=== PATIENT | female | born 1990 | race Caucasian/White ===

== ENCOUNTER 2017-04-05 08:51 | Inpatient (IN) ==
[2017-04-05] MEDS ORDERED: MEPERIDINE 50 MG/1 ML VIAL IV PRN (08:56)
[2017-04-05] MEDS ORDERED: ONDANSETRON 4 MG/2 ML VIAL IV PRN (08:56)
[2017-04-05] MEDS ORDERED: CITRIC ACID/SODIUM CITRATE 30 ML UDCUP PO ONE (08:59)
[2017-04-05] MEDS ORDERED: ePHEDrine 50 MG/ML AMP IV PRN (08:59)
[2017-04-05] MEDS ORDERED: PROMETHAZINE 25 MG/1 ML VIAL IM ONE (08:59)
[2017-04-05] MEDS ORDERED: hydrOXYzine HCL 25 MG/1 ML VIAL IM PRN (08:59)
[2017-04-05] MEDS ORDERED: ONDANSETRON 4 MG/2 ML VIAL IV ONE (08:59)
[2017-04-05] MEDS ORDERED: LACTATED RINGERS 1,000 ML IV ONE (08:59)
[2017-04-05] MEDS ORDERED: FAMOTIDINE 20 MG/2 ML VIAL IV ONE (08:59)
[2017-04-05] MEDS ORDERED: fentaNYL 2 MCG/ROPIV 0.2% EPID 150 ML EPIDURAL SCH (08:59)
[2017-04-05] MEDS ORDERED: diphenhydrAMINE 50 MG/1 ML VIAL IV PRN ×2 (08:59)
[2017-04-05] MEDS ORDERED: LACTATED RINGERS 1,000 ML IV SCH (09:00)
[2017-04-05 09:13] LABS: Basophils % 0.2 % (0.0-0.8); Eosinophils # 0.1 10*3/uL (0.0-0.87); Eosinophils % 0.9 % (0.00-10.9); Hematocrit 29.1 VOL% (35.7-47.0); Hemoglobin 9.4 GM/DL (12.0-16.0); Immature Granulocytes % 0.6 %; Immature Granulocytes Absolute 0.06 #; Lymphocytes % 21.5 % (21.3-54.2); Mean Corpuscular HGB Conc 32.3 GM/DL (32-36); Mean Corpuscular Hemoglobin 26 PG (27-34); Mean Corpuscular Volume 79.9 FL (87-102); Mean Platelet Volume 11.9 FL (9.6-12.0); Monocytes # 0.7 10*3/uL (0.11-0.8); Monocytes % 7.3 % (1.7-12.7); Neutrophils # 6.5 10*3/uL (1.4-7.4); Neutrophils % 69.5 % (38.7-73.9); Platelet Count 174 T/CUMM (130-400); Red Blood Count 3.64 MC/CUMM (3.8-5.5); White Blood Count 9.3 T/CUMM (4-12)
[2017-04-05] MEDS ORDERED: LIDOCAINE 1% 50 ML VIAL ONE (09:16)
[2017-04-05] MEDS ORDERED: OXYTOCIN/LR 20 UNIT/1,000 ML BAG IV ONE ×3 (09:16→15:06)
[2017-04-05] MEDS ORDERED: CLINDAMYCIN INJ 900 MG in PREMIX 1 EACH IV SCH (09:30)
[2017-04-05 09:36] LABS: Band Neutrophils 4 % (0-10); Hypochromasia 1+; Lymphocytes 18 % (20-55); Microcytosis Slight; Platelet Estimate Normal; Segmented Neutrophils 77 % (50-85); Total Cells Counted 100
[2017-04-05 09:41] LABS: Albumin 2.6 G/DL (3.4-5.0); Bilirubin,Total 0.7 MG/DL (0.2-1.0); Calcium 9.1 MG/DL (8.5-10.1); Potassium 3.7 MMOL/L (3.5-5.1); Total Protein 6.9 G/DL (6.4-8.3)
--- NOTE | 2017-04-05 09:45 | OB/GYN History & Physical ---
History of Present Illness Chief complaint: Labor History of present illness: Ms. Cruz is a 27 year old female at 38 3/7 weeks who presented ~0900 in active labor. on admission and very uncomfortable. No issues with the . Pt has a diagnosis of Bipolar disorder and Schizophrenia. Home Medications Medication Instructions Recorded Confirmed Type NIFEdipine CAP [Procardia] 10 mg PO Q6HR 03/02/17 04/05/17 History Acetamin/Codeine 300-30 Tab 1 tablet PO Q4H 03/27/17 04/05/17 History [Tylenol/Codeine #3] Vit No.124/Iron/Folic 1 tablet PO DAILY 03/27/17 04/05/17 History [ Vitamin Tablet] Allergies Allergy/AdvReac Type Severity Reaction Status Date / Time Amoxicillin Allergy Unknown/Unable Verified 01/16/17 17:40 to obtain Cefaclor [From Ceclor] Allergy Unknown/Unable Verified 01/16/17 17:40 to obtain doxycycline Allergy Unknown/Unable Verified 01/16/17 17:40 to obtain levofloxacin Allergy ITCHING Verified 01/16/17 17:40 morphine Allergy ITCHING Verified 01/16/17 17:40 povidone-iodine Allergy Unknown/Unable Verified 01/16/17 17:40 [From Betadine] to obtain soap [From Betadine] Allergy Unknown/Unable Verified 01/16/17 17:40 to obtain Medical,Surgical,& Family Hx - Medical History Psychological: History of: Anxiety Disorders Respiratory: History of: Asthma Reproductive: No history of: Ectopic , Complication - Surgical History HEENT Surgeries: Surgical HX of: Tonsilectomy & Adenoidectomy Abdominal Surgeries: Surgical HX of: Hernia Repair Reproductive Surgeries: Surgical HX of;: Dilation and Curettage (x 3) Patient denies;: Section - Social History Smoking Status: Never smoker Frequency of Alcohol Use: None Type of Drug Use: None 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 Regular contractions.) Assessment and Plan (1) 38 weeks gestation of Status: Acute Assessment and plan: Active labor Anticipate Current Visit: Yes Results - Labs CBC & BMP: 04/05/17 09:00 04/05/17 09:00
[2017-04-05] MEDS ORDERED: METHYLERGONOVINE 0.2 MG/1 ML AMP ONE (10:32)
[2017-04-05 12:35] LABS: Apearance,Urine Slightly Hazy (Clear); Bilirubin,Urine Negative (Negative); Blood, Urine Moderate mg/dL (Negative); Glucose,Urine (UA) Negative (Negative); Ketones,Urine 80 mg/dL (Negative); Mucus,Urine Many /LPF (Occasional); Nitrite,Urine Negative (Negative); Protein,Urine 30 MG/DL; RBC,Urine 75 /HPF (0-4); Squamous Epithelial Cell,Urine Occasional /HPF (0-10); Urine Color Yellow (Yellow); Urine Specific Gravity 1.023 (1.001-1.035); WBC,Urine 4 /HPF (0-6)
[2017-04-05 12:56] LABS: Barbiturates Screen,Urine Negative (Negative); Benzodiazepines Screen,Urine Negative (Negative); Cannabinoid Screen,Urine Negative (Negative); Opiate Screen,Urine Positive (Negative); Phencyclidine Screen,Urine Negative (Negative)
--- NOTE | 2017-04-05 14:14 | Event Note ---
HPI: Ms. Cruz is a 27-year-old female who presented to the labor department in active labor. The risk and benefits were thoroughly discussed with this patient and significant other, plan of care was discussed with Dr. Irwin and all parties were in agreement plan. Stage I: The patient was admitted she received IV fluids and IV Pitocin per protocol. She experienced spontaneous rupture membranes with clear fluid noted. She received an epidural for pain control. She progressed in labor with a CAT 1 to CAT 2 tracing. The CAT 2 tracing was correct with oxygenation and position change. Otherwise the patient had an uneventful course of labor. Stage II: The patient was completely dilated at 1345. The patient was then instructed to push. She pushed approximately 3 times after which time the 's head was delivered. The mouth nose suctioned on the perineum. The remainder the was delivered at 1351 a viable female was noted. Apgars were 8 at 1 minute and 9 at 5 minutes. weight was 8 pounds and 6 ounces. A cord pH was obtained and sent to the lab. The was stabilized and placed on the mom's abdomen for skin to skin bonding. Stage III: Spontaneous delivery of a Spencer placenta with three-vessel cord noted. The placenta was further examined appeared to be grossly intact. The vagina cervix was inspected with no tears or lacerations noted. Estimated blood loss was approximately 150 cc. At the time of dictation mother and baby are both in stable condition.
[2017-04-05] MEDS ORDERED: ACETAMINOPHEN/CODEINE 300-30 MG TABLET PO PRN (14:16)
[2017-04-05] MEDS ORDERED: MEASLES/MUMPS/RUBELLA VACCINE 0.5 ML VIAL SUBCUT ONE (16:25)
[2017-04-05] MEDS ORDERED: WITCH HAZEL PADS 100/JAR TOP PRN (16:25)
[2017-04-05] MEDS ORDERED: BENZOCAINE 20%/MENTHOL 0.5% SPRAY 56 GM CAN TOP PRN (16:25)
[2017-04-05] MEDS ORDERED: LANOLIN 50% CREAM 0.3 OZ TUBE TOP PRN (16:25)
[2017-04-05] MEDS ORDERED: DIPH/TET/ACEL PERT BOOSTER VACCINE 0.5 ML VIAL IM ONE (16:25)
[2017-04-05] MEDS ORDERED: ACETAMINOPHEN 325 MG TABLET PO PRN (16:25)
[2017-04-05] MEDS ORDERED: HYDROCORTISONE 2.5% RECTAL CREAM 30 GM TUBE TOP PRN (16:25)
[2017-04-05] MEDS ORDERED: BISACODYL 10 MG SUPP RECTAL PRN (16:25)
[2017-04-05] MEDS ORDERED: RHO(D) IMMUNE GLOBULIN 300 MCG SYRINGE IM ONE (16:25)
[2017-04-05] MEDS: oxyCODONE/ACETAMINOPHEN 5-325 MG TABLET PO PRN ×2 (17:21→23:41)
[2017-04-05] MEDS: IBUPROFEN 800 MG TABLET PO PRN (17:21)
[2017-04-05] MEDS: DOCUSATE SODIUM 100 MG CAPSULE PO SCH (20:38)
[2017-04-06] MEDS: oxyCODONE/ACETAMINOPHEN 5-325 MG TABLET PO PRN ×4 (05:13→20:32)
[2017-04-06 06:35] LABS: Basophils % 0.3 % (0.0-0.8); Eosinophils # 0.1 10*3/uL (0.0-0.87); Eosinophils % 1.5 % (0.00-10.9); Hematocrit 24.1 VOL% (35.7-47.0); Hemoglobin 7.7 GM/DL (12.0-16.0); Immature Granulocytes % 0.6 %; Immature Granulocytes Absolute 0.05 #; Lymphocytes # 2.2 10*3/uL (1.4-4.0); Lymphocytes % 24.9 % (21.3-54.2); Mean Corpuscular Hemoglobin 26 PG (27-34); Mean Corpuscular Volume 80.9 FL (87-102); Mean Platelet Volume 12.2 FL (9.6-12.0); Monocytes # 0.7 10*3/uL (0.11-0.8); Monocytes % 7.5 % (1.7-12.7); Neutrophils # 5.8 10*3/uL (1.4-7.4); Neutrophils % 65.2 % (38.7-73.9); Platelet Count 142 T/CUMM (130-400); Red Blood Count 2.98 MC/CUMM (3.8-5.5); White Blood Count 8.9 T/CUMM (4-12)
[2017-04-06 07:19] LABS: Hypochromasia 2+; Microcytosis 2+; Platelet Estimate Decreased; Target Cells Slight
[2017-04-06] MEDS: IBUPROFEN 800 MG TABLET PO PRN ×2 (08:28→17:25)
[2017-04-06] MEDS: DOCUSATE SODIUM 100 MG CAPSULE PO SCH ×2 (08:28→20:33)
[2017-04-06] MEDS: FERROUS SULFATE 325 MG TABLET PO SCH ×3 (08:30→20:33)
--- NOTE | 2017-04-06 16:08 | Anesthesia Post-Op ---
Anesthesia Post OP - Post Ansesthetic Evaluation Patient seen in post op: Yes Resp: within normal limits CV: within normal limits Mental: within normal limits Temp: within normal limits [id number]: within normal limits Nausea and Vomiting: within normal limits Pain: within normal limits
[2017-04-06] MEDS: SODIUM CHLORIDE 0.9% 250 ML IV PRN ×2 (16:45→19:30)
[2017-04-06] MEDS ORDERED: diphenhydrAMINE CAP 25 MG CAPSULE ONE (17:04)
[2017-04-06] MEDS ORDERED: diphenhydrAMINE CAP 50 MG CAPSULE PO ONE (17:14)
--- NOTE | 2017-04-06 18:05 | OB/GYN Progress Note ---
Assessment and Plan (1) Vaginal delivery Status: Acute Assessment and plan: Initiate routine orders. Type and crossmatch for 2 units of packed RBCs due to anemia. 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 Bonding well with . 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 Vitals: Vital Signs Temp Pulse Pulse Resp BP BP Pulse Ox 04/06/17 17:11 982 F H 77 18 99 04/06/17 17:05 97.6 F 76 20 99 04/06/17 17:00 97.3 F L 74 18 132/86 99 04/06/17 16:55 97.5 F L 74 18 137/82 04/06/17 16:50 97.4 F L 72 18 114/68 99 04/06/17 16:00 97.9 F 74 18 115/75 04/06/17 15:26 20 04/06/17 14:32 18 04/06/17 14:00 20 04/06/17 13:00 20 04/06/17 12:00 97.3 F L 65 18 121/71 04/06/17 11:59 20 04/06/17 11:00 18 04/06/17 10:00 18 04/06/17 09:00 18 04/06/17 08:00 98.2 F 66 18 105/59 04/06/17 04:00 97.7 F 67 18 113/73 04/06/17 02:00 18 04/06/17 00:00 98.5 F 83 18 134/80 Pulse Ox 04/06/17 17:11 04/06/17 17:05 04/06/17 17:00 04/06/17 16:55 04/06/17 16:50 04/06/17 16:00 99 04/06/17 15:26 04/06/17 14:32 04/06/17 14:00 04/06/17 13:00 04/06/17 12:00 99 04/06/17 11:59 04/06/17 11:00 04/06/17 10:00 04/06/17 09:00 04/06/17 08:00 97 04/06/17 04:00 100 04/06/17 02:00 04/06/17 00:00 100 General appearance: no acute distress - Antepartum / Post Post Exam Breast: bilateral: normal Abdomen obstetrics: Present: bowel sounds normal Vagina: Present: normal moisture, discharge Uterus exam: Present: enlarged (Fundus firm and midline) Anus/Rectum: Present: normal perianal skin - Respiratory Respiratory exam: Present: clear to auscultation bilaterally - Cardiovascular Cardiovascular exam: Present: regular rate and rhythm - GI/Abdominal GI/Abdominal exam: Present: normal bowel sounds, soft - Extremities Exam Extremities exam: Present: normal inspection - Back Exam Back exam: Present: normal inspection - Neurological Exam Neurological exam: Present: alert, oriented X3 - Psychiatric Psychiatric exam: Present: normal affect, normal mood - Skin Skin exam: Present: normal color, warm Results - Labs CBC & BMP: 04/06/17 05:31 04/05/17 09:00
[2017-04-06] MEDS ORDERED: SIMETHICONE CHEW 80 MG TABLET PO PRN (21:05)
[2017-04-07] MEDS ORDERED: MAGNESIUM HYDROXIDE SUSP 30 ML UDCUP PO PRN (01:04)
[2017-04-07 01:28] LABS: Hemoglobin 9.3 GM/DL (12.0-16.0)
[2017-04-07] MEDS: IBUPROFEN 800 MG TABLET PO PRN ×2 (03:34→11:06)
[2017-04-07] MEDS: oxyCODONE/ACETAMINOPHEN 5-325 MG TABLET PO PRN ×2 (06:18→12:12)
--- NOTE | 2017-04-07 08:11 | Discharge Summary ---
Hospital Course - Hospital Course Hospital Course: Ms. Cruz presented to the hospital in active labor. She subsequently delivered a viable infant with no complications. She has followed a normal course. She was anemic and did receive 2 units of packed RBCs. Her vital signs and lab values are stable at this time. She states that she feels much better since receiving the blood. Her bleeding is minimal with no odor. She is bonding well with her . She is voiding without difficulty. Her pain level is minimal. Perineum is intact with no edema. She will be discharged home with prescriptions for pain and a follow-up appointment in our office. Diagnosis - Discharge Diagnosis (1) Vaginal delivery Status: Acute (2) 38 weeks gestation of Status: Acute Specialty Discharge - Follow Up or Referrals Follow up with: Akbar Carballo MD [Physician] - 1 Month Discharge Plan - Discharge Data Disposition: Disch To Home/Self Care Condition at Discharge: Stable Discharge Diet: advance to your usual diet, regular diet Activity: resume usual activities as tolerated Hygiene: may shower Weight Bearing at Discharge: weight bear as tolerated Driving: no restrictions Contact your physician if you experience:: fever over 101, pain uncontrolled by pain medications - Discharge Medications New Acetamin/Codeine 300-30 Tab [Tylenol/Codeine #3] 2 tablet PO Q4H PRN #30 tablet PRN Reason: Pain Mild (1-3) Ferrous Sulfate Tab [Feosol Original Tab] 325 mg PO TID #60 tablet Ibuprofen Tab [Motrin Tab] 800 mg PO Q6H PRN #30 tablet PRN Reason: Pain Moderate (4-7) No Action Vit No.124/Iron/Folic [ Vitamin Tablet] 1 tablet PO DAILY NIFEdipine CAP [Procardia] 10 mg PO Q6HR Acetamin/Codeine 300-30 Tab [Tylenol/Codeine #3] 1 tablet PO Q4H - Follow Up or Referral - Forms/Instructions Exam - Constitutional Vitals: Period Temp Pulse Resp BP Sys/Walker Pulse Ox Last 24 Hr 97.2 F-982 F 54-77 18-20 114-137/68-87 98-99 General appearance: no acute distress - Head Head exam: Present: normal inspection - Respiratory Respiratory exam: Present: clear to auscultation bilaterally - Cardiovascular Cardiovascular exam: Present: regular rate and rhythm - GI/Abdominal GI/Abdominal exam: Present: normal bowel sounds, soft - Extremities Exam Extremities exam: Present: normal inspection - Neurological Exam Neurological exam: Present: alert, oriented X3 - Psychiatric Psychiatric exam: Present: normal affect, normal mood - Skin Skin exam: Present: normal color, warm Discharge Results Labs on day of discharge: Labs from last 24 hours 04/07/17 04/06/17 04/06/17 00:47 Unknown 05:31 Hgb 9.3 L D Hct 29.0 L Blood Type B POSITIVE Cancelled Antibody Screen Cancelled Crossmatch See Detail Blood Bank Comment Cancelled DS: Provider Date of admission: 04/05/17 09:47 Primary care physician: . No PCP Attending physician on admission: Flaquita James MD Consults: 04/05/17 08:56 Consult to Anesthesiology [CONS] Routine Consulting Provider: Reason for Anesthesiology: Epidural Consult Comment: Epidural for pain managment 04/05/17 16:25 Consult to Warehouse Specialist [CONS] Routine Consult Warehouse Specialist: Breast Feeding Discharging clinician: Shabnam Castle CNM Expected date of discharge: 04/07/17
[2017-04-07 08:29] VITALS: BP 137/89
[2017-04-07] MEDS: DOCUSATE SODIUM 100 MG CAPSULE PO SCH (09:19)
[2017-04-07] MEDS: FERROUS SULFATE 325 MG TABLET PO SCH (09:19)
[2017-04-07] MEDS ORDERED: ONDANSETRON 4 MG/2 ML VIAL ONE (13:30)
[2017-04-07] MEDS ORDERED: LIDOCAINE 1% 5 ML VIAL ONE (13:30)
[2017-04-07] MEDS ORDERED: PROPOFOL 200 MG/20 ML VIAL IV ONE (13:30)
== END 2017-04-07 13:40 | disposition home or self-care (01) | DRG 560 ==
LOC: N.LDOUT 08:51 → N.LD 08:53 → N.OB 16:25
PROVIDERS: ADMIT Obstetrics & Gynecology; ATTEND Obstetrics & Gynecology

== ENCOUNTER 2019-12-25 11:00 | Inpatient (IN) ==
[2019-12-25] MEDS ORDERED: ONDANSETRON 4 MG/2 ML VIAL IV PRN (23:17)
[2019-12-25] MEDS ORDERED: BUTORPHANOL 2 MG/ML VIAL IV PRN (23:17)
[2019-12-25] MEDS ORDERED: MEPERIDINE 50 MG/1 ML VIAL IM PRN (23:17)
[2019-12-25] MEDS ORDERED: LACTATED RINGERS 1,000 ML IV ONE (23:22)
[2019-12-25] MEDS ORDERED: LACTATED RINGERS 1,000 ML IV SCH (23:30)
[2019-12-25] MEDS: CLINDAMYCIN INJ 900 MG in PREMIX 1 EACH IV SCH (23:43)
[2019-12-25 23:49] LABS: Basophils % 0.3 % (0.0-0.8); Eosinophils # 0.1 10*3/uL (0.0-0.87); Eosinophils % 1.7 % (0.00-10.9); Hematocrit 31.3 VOL% (35.7-47.0); Hemoglobin 9.8 GM/DL (12.0-16.0); Immature Granulocytes % 0.1 %; Immature Granulocytes Absolute 0.01 #; Lymphocytes # 2.3 10*3/uL (1.4-4.0); Mean Corpuscular HGB Conc 31.3 GM/DL (32-36); Mean Corpuscular Volume 84.1 FL (87-102); Monocytes % 6.2 % (1.7-12.7); Neutrophils % 59.7 % (38.7-73.9); Platelet Count 191 T/CUMM (130-400); Red Blood Count 3.72 MC/CUMM (3.8-5.5); Red Cell Distribution Width 14.3 % (9.3-17.3); White Blood Count 7.1 T/CUMM (4-12)
[2019-12-26] MEDS ORDERED: PROMETHAZINE 25 MG/1 ML VIAL IM ONE (01:59)
[2019-12-26] MEDS ORDERED: diphenhydrAMINE 50 MG/1 ML VIAL IV PRN ×2 (01:59)
[2019-12-26] MEDS ORDERED: NALOXONE 0.4 MG/ML VIAL IV PRN (01:59)
[2019-12-26] MEDS ORDERED: hydrOXYzine HCL 25 MG/1 ML VIAL IM PRN (01:59)
[2019-12-26] MEDS ORDERED: LACTATED RINGERS 500 ML IV ONE (01:59)
[2019-12-26] MEDS ORDERED: ONDANSETRON 4 MG/2 ML VIAL IV ONE (01:59)
[2019-12-26] MEDS ORDERED: ePHEDrine 50 MG/ML AMP IV PRN (01:59)
[2019-12-26] MEDS ORDERED: LACTATED RINGERS 1,000 ML IV ONE (01:59)
[2019-12-26] MEDS ORDERED: LACTATED RINGERS 1,000 ML IV SCH (02:00)
[2019-12-26] MEDS ORDERED: CITRIC ACID/SODIUM CITRATE 30 ML UDCUP ONE (02:00)
[2019-12-26] MEDS ORDERED: fentaNYL 2 MCG/ROPIV 0.2% EPID 100 ML EPIDURAL ONE (02:01)
[2019-12-26] MEDS ORDERED: EPINEPHrine 1 MG/ML VIAL ONE (02:02)
[2019-12-26] MEDS ORDERED: FAMOTIDINE 20 MG/2 ML VIAL IV ONE (02:13)
[2019-12-26] MEDS ORDERED: CITRIC ACID/SODIUM CITRATE 30 ML UDCUP PO ONE (02:14)
[2019-12-26] MEDS: fentaNYL 2 MCG/ROPIV 0.2% EPID 100 ML EPIDURAL SCH ×2 (02:25→09:32)
[2019-12-26] MEDS ORDERED: METHYLERGONOVINE 0.2 MG/1 ML AMP ONE ×2 (03:17→07:53)
[2019-12-26] MEDS ORDERED: OXYTOCIN/LR 20 UNIT/1,000 ML BAG IV ONE ×2 (03:17→11:10)
[2019-12-26] MEDS ORDERED: TRANEXAMIC ACID 1,000 MG/10 ML VIAL ONE ×2 (03:17→07:52)
[2019-12-26] MEDS ORDERED: miSOPROStoL 200 MCG TABLET ONE ×2 (03:17→07:52)
[2019-12-26] MEDS ORDERED: CARBOPROST TROMETHAMINE 250 MCG/ML AMP IM ONE ×2 (03:17→07:53)
[2019-12-26 03:48] LABS: Apearance,Urine CLEAR (Clear); Bacteria,Urine Occasional /HPF (Few); Bilirubin,Urine Negative (Negative); Blood, Urine Negative (Negative); Glucose,Urine (UA) Negative (Negative); Ketones,Urine 5 mg/dL (Negative); Nitrite,Urine Negative (Negative); Protein,Urine Negative; Squamous Epithelial Cell,Urine Occasional /HPF (0-10); Urine Color Straw (Yellow); Urine Specific Gravity 1.003 (1.001-1.035); Urine Urobilinogen < 2.0 EU/DL (0.2-1.0); WBC,Urine 2 /HPF (0-6)
[2019-12-26 04:30] LABS: Barbiturates Screen,Urine Negative (Negative); Benzodiazepines Screen,Urine Negative (Negative); Cannabinoid Screen,Urine Negative (Negative); Opiate Screen,Urine Negative (Negative); Phencyclidine Screen,Urine Negative (Negative)
[2019-12-26] MEDS: ACETAMINOPHEN 325 MG TABLET PO PRN (06:30)
[2019-12-26] MEDS ORDERED: OXYTOCIN/D5LR 20 UNIT/1,000 ML PREMIX IV SCH (07:30)
[2019-12-26] MEDS ORDERED: LIDOCAINE 1% 50 ML VIAL ONE (07:54)
[2019-12-26] MEDS ORDERED: OXYTOCIN/LR 20 UNIT/1,000 ML BAG IV SCH (08:00)
[2019-12-26] MEDS: CLINDAMYCIN INJ 900 MG in PREMIX 1 EACH IV SCH (08:51)
[2019-12-26] MEDS ORDERED: BENZOCAINE 20%/MENTHOL 0.5% SPRAY 56 GM CAN TOP PRN (11:10)
[2019-12-26] MEDS ORDERED: HYDROCORTISONE 2.5% RECTAL CREAM 30 GM TUBE TOP PRN (11:10)
[2019-12-26] MEDS ORDERED: ONDANSETRON 4 MG/2 ML VIAL IV PRN (11:10)
[2019-12-26] MEDS ORDERED: RHO(D) IMMUNE GLOBULIN 300 MCG SYRINGE IM ONE (11:10)
[2019-12-26] MEDS ORDERED: WITCH HAZEL PADS 100/JAR TOP PRN (11:10)
[2019-12-26] MEDS ORDERED: BISACODYL 10 MG SUPP RECTAL PRN (11:10)
[2019-12-26] MEDS ORDERED: DIPH/TET/ACEL PERT BOOSTER VACCINE 0.5 ML VIAL IM ONE (11:10)
[2019-12-26] MEDS ORDERED: LANOLIN 50% CREAM 0.3 OZ TUBE TOP PRN (11:10)
[2019-12-26] MEDS ORDERED: MEASLES/MUMPS/RUBELLA VACCINE 0.5 ML VIAL SUBCUT ONE (11:10)
[2019-12-26] MEDS ORDERED: ACETAMINOPHEN 325 MG TABLET PO PRN (11:10)
[2019-12-26] MEDS: IBUPROFEN 800 MG TABLET PO PRN ×2 (12:22→22:17)
[2019-12-26] MEDS: DOCUSATE SODIUM 100 MG CAPSULE PO SCH (22:00)
[2019-12-26] MEDS: BUPRENORPHINE SL TAB 2 MG TABLET SL SCH (22:00)
[2019-12-27] MEDS: IBUPROFEN 800 MG TABLET PO PRN ×2 (05:40→18:20)
[2019-12-27 07:35] LABS: Basophils % 0.4 % (0.0-0.8); Eosinophils # 0.2 10*3/uL (0.0-0.87); Eosinophils % 2.6 % (0.00-10.9); Hemoglobin 7.9 GM/DL (12.0-16.0); Immature Granulocytes % 0.4 %; Immature Granulocytes Absolute 0.03 #; Lymphocytes # 2.1 10*3/uL (1.4-4.0); Mean Corpuscular HGB Conc 30.4 GM/DL (32-36); Mean Corpuscular Volume 86.1 FL (87-102); Mean Platelet Volume 12.2 FL (9.6-12.0); Monocytes % 6.8 % (1.7-12.7); Neutrophils % 58.8 % (38.7-73.9); Platelet Count 141 T/CUMM (130-400); Red Blood Count 3.02 MC/CUMM (3.8-5.5); Red Cell Distribution Width 14.6 % (9.3-17.3); White Blood Count 6.8 T/CUMM (4-12)
[2019-12-27] MEDS: FERROUS SULFATE 325 MG TABLET PO SCH ×2 (09:28→21:32)
[2019-12-27] MEDS: BUPRENORPHINE SL TAB 2 MG TABLET SL SCH ×2 (09:28→21:34)
[2019-12-27] MEDS: DOCUSATE SODIUM 100 MG CAPSULE PO SCH ×2 (09:28→21:32)
[2019-12-27] MEDS: ACETAMINOPHEN 325 MG TABLET PO PRN (21:33)
[2019-12-28] MEDS: DOCUSATE SODIUM 100 MG CAPSULE PO SCH (10:06)
[2019-12-28] MEDS: BUPRENORPHINE SL TAB 2 MG TABLET SL SCH (10:06)
[2019-12-28] MEDS: FERROUS SULFATE 325 MG TABLET PO SCH (10:07)
[2019-12-28 11:12] VITALS: BP 119/72
== END 2019-12-28 16:55 | disposition home or self-care (01) | DRG 560 ==
LOC: N.LDOUT 22:18 → N.LD 22:21 → N.OB 12-26 12:48
PROVIDERS: ADMIT Specialist; ATTEND Specialist